=== PATIENT | female | born 1945 | race Caucasian/White ===

== ENCOUNTER 2020-05-04 13:49 | Emergency (ER) | payer MEDICARE, OTHER ==
--- NOTE | 2020-05-04 14:32 | ED Physician Documentation ---
PD HPI ABD PAIN - Stated complaint Stated Complaint: ABD PAIN - Chief complaint Chief Complaint: Abd Pain - History obtained from History obtained from: Patient - Additional information Additional information: 74-year-old woman with history of remote hysterectomy and kidney stones presents with lower abdominal vein pain of 4 days duration. It is a cramping painlow that worsens when she has a bowel movement, but her bowel movements are otherwise unremarkable. No nausea or fevers. No history of abdominal surgeries other than the hysterectomy. She declines pain medication on initial evaluation. Review of Systems Ten Systems: 10 systems reviewed and negative Constitutional: denies: Fever, Chills Cardiac: denies: Chest pain / pressure, Palpitations Respiratory: denies: Dyspnea, Cough PD PAST MEDICAL HISTORY - Past Medical History : Kidney stones Musculoskeletal: Osteoarthritis, Osteoporosis, Osteopenia - Past Surgical History /[employer]: Hysterectomy - Present Medications Home Medications: Ambulatory Orders Medication Instructions Recorded Confirmed Amox/Clav 875/125 [Augmentin] 1 each PO Q12H #20 tablet 05/04/20 Cream Base No.52 [Hrt Cream] 05/04/20 - Allergies Allergies/Adverse Reactions: Allergies Allergy/AdvReac Type Severity Reaction Status Date / Time acetaminophen AdvReac Nausea Verified 05/04/20 13:59 [From [employer] with Codeine] codeine phosphate * AdvReac Nausea Verified 05/04/20 13:59 [From [employer] with Codeine] Opioids - Morphine Analogues AdvReac Nausea Verified 05/04/20 13:59 PD ED PE NORMAL - Vitals Vital signs reviewed: Yes - General General: Alert and oriented X 3, No acute distress - HEENT HEENT: PERRL, EOMI - Neck Neck: Supple, no meningeal sign, No bony TTP - Cardiac Cardiac: RRR, No murmur - Respiratory Respiratory: No respiratory distress, Clear bilaterally - Abdomen Abdomen: Other (Tender in the low abdomen, with hyperactive bowel sounds. No surgical signs. Tenderness does not seem to lateralize to one side or the other.) - Back Back: No CVA TTP, No spinal TTP - Derm Derm: Normal color, Warm and dry - Extremities Extremities: No deformity, No edema, No calf tenderness / cord - Neuro Neuro: Alert and oriented X 3, Normal speech Results - Vitals Vitals: Vital Signs - 24 hr 05/04/20 05/04/20 13:59 15:27 Temperature 37.5 C 37 C Heart Rate 86 88 Respiratory 18 12 Rate Blood Pressure 134/70 H 142/67 H O2 Saturation 100 98 Oxygen O2 Source Room air - Labs Labs: Laboratory Tests 05/04/20 05/04/20 05/04/20 14:26 15:08 15:08 WBC 10.9 H RBC 3.99 L Hgb 12.4 Hct 36.8 L MCV 92.2 MCH 31.1 H MCHC 33.7 RDW 12.7 Plt Count 219 MPV 10.6 Neut # (Auto) 8.3 H Lymph # (Auto) 1.6 [place] # (Auto) 0.9 Eos # (Auto) 0.1 Baso # (Auto) 0.1 Absolute Nucleated RBC 0.00 Nucleated RBC % 0.0 Sodium 135 Potassium 3.3 L Chloride 99 L Carbon Dioxide 24 Anion Gap 12.0 BUN 15 Creatinine 0.7 Estimated GFR (MDRD) 82 L Glucose 102 H Calcium 9.1 Total Bilirubin 0.7 AST 18 ALT 16 Alkaline Phosphatase 84 Total Protein 7.7 Albumin 4.0 Globulin 3.7 Albumin/Globulin Ratio 1.1 Lipase 30 Urine Color YELLOW Urine Clarity CLEAR Urine pH 6.0 Ur Specific [place] 1.010 Urine Protein NEGATIVE Urine Glucose (UA) NEGATIVE Urine Ketones 15 H Urine Occult Blood NEGATIVE Urine Nitrite NEGATIVE Urine Bilirubin NEGATIVE Urine Urobilinogen 0.2 (NORMAL) Ur Leukocyte Esterase NEGATIVE Ur Microscopic Review NOT INDICATED Urine Culture Comments NOT INDICATED PD MEDICAL DECISION MAKING - ED course ED course: 74-year-old woman presents with lower abdominal pain, found to have uncomplicated diverticulitis. Very mild leukocytosis. We discussed recent studies and [place] gastroenterology Association guidelines with regard to antibiotic use for uncomplicated diverticulitis and with shared decision making she would like to still go ahead with antibiotics. Understands the need for dietary restrictions and follow-up colonoscopy. Declines pain medications. Departure - Departure Disposition: 01 Home, Self Care Clinical Impression: Diverticulitis of gastrointestinal tract Condition: Good Record reviewed to determine appropriate education?: Yes Instructions: ED Diverticulitis Prescriptions: Amox/Clav 875/125 [Augmentin] 1 each PO Q12H #20 tablet Comments: As discussed, you should probably talk with your primary care physician about having a colonoscopy after this flare has calm down in a couple of months. We discussed whether or not to do antibiotics today given the new evidence that potentially not all flares of diverticulitis require antibiotic treatment. At your request we are starting some antibiotics. Return if worse. Clear liquids for the next 36 hours and then a low residue diet without much fiber for another couple of days.
[2020-05-04 14:44] LABS: BILIRUBIN,URINE NEGATIVE (NEGATIVE); GLUCOSE, URINE (UA) NEGATIVE (NEGATIVE); KETONES,URINE (UA) 15 mg/dL (NEGATIVE); LEUKOCYTE ESTERASE, URINE NEGATIVE (NEGATIVE); NITRITE,URINE NEGATIVE (NEGATIVE); OCCULT BLOOD,URINE NEGATIVE (NEGATIVE); PROTEIN,URINE NEGATIVE (NEGATIVE); UROBILINOGEN,URINE 0.2 (NORMAL) E.U./dL (NORMAL)
[2020-05-04 14:48] LABS: CLARITY,URINE CLEAR (CLEAR)
[2020-05-04 15:20] LABS: BASOPHILS # (AUTO) 0.1 10^3/uL (0.0-0.1); BASOPHILS % (AUTO) 0.6 %; EOSINOPHILS # (AUTO) 0.1 10^3/uL (0.0-0.7); EOSINOPHILS % (AUTO) 0.8 %; HGB - HEMOGLOBIN 12.4 g/dL (12.0-16.0); LYMPHOCYTES # (AUTO) 1.6 10^3/uL (1.5-3.5); LYMPHOCYTES % (AUTO) 14.3 %; MEAN CORPUSCULAR HEMOGLOBIN 31.1 pg (27.0-31.0); MEAN CORPUSCULAR HGB CONC 33.7 g/dL (32.0-36.0); MEAN CORPUSCULAR VOLUME 92.2 fL (81.0-99.0); MEAN PLATELET VOLUME 10.6 fL (7.9-10.8); MONOCYTES # (AUTO) 0.9 10^3/uL (0.0-1.0); MONOCYTES % (AUTO) 7.8 %; NEUTROPHILS # (AUTO) 8.3 10^3/uL (1.5-6.6); NEUTROPHILS % (AUTO) 76.1 %; PLT - PLATELET COUNT 219 10^3/uL (130-450); RED BLOOD COUNT 3.99 10^6/uL (4.20-5.40); RED CELL DISTRIBUTION WIDTH 12.7 % (12.0-15.0); WHITE BLOOD COUNT 10.9 x10^3/uL (4.8-10.8)
[2020-05-04] MEDS ORDERED: IOVERSOL 320 100 ML VIAL IVP ONE ×2 (15:28→16:08)
[2020-05-04 15:32] LABS: ALBUMIN/GLOBULIN RATIO 1.1 (1.0-2.2); BILIRUBIN,TOTAL 0.7 mg/dL (0.2-1.0); CALCIUM 9.1 mg/dL (8.5-10.3); CREATININE 0.7 mg/dL (0.4-1.0); TOTAL PROTEIN 7.7 g/dL (6.7-8.2)
--- NOTE | 2020-05-04 16:11 | CT Report ---
PROCEDURE: Abdomen/Pelvis W INDICATIONS: Low abdominal pain CONTRAST: IV CONTRAST: Optiray 320 ml: 100 PO CONTRAST: *NO PO CONTRAST TECHNIQUE: After the administration of intravenous contrast, 5 mm thick sections acquired from the diaphragms to the symphysis. 5 mm thick coronal and sagittal reformats were acquired. For radiation dose reducti on, the following was used: automated exposure control, adjustment of mA and/or kV according to shereen ent size. COMPARISON: None. FINDINGS: Image quality: Excellent. ABDOMEN: Lung bases: Lung bases are clear. Heart size is normal. Solid organs: Liver and spleen are normal in size and enhancement. Gallbladder is normal. Biliary system is non dilated. Pancreas enhances normally. No adrenal nodules. Kidneys demonstrate normal size and enhancement, without hydronephrosis. Peritoneum and bowel: Just proximal to the rectosigmoid junction, there is an approximately 6 cm segm ent of distal sigmoid which is abnormally thickened with adjacent fat stranding. Innumerable sigmoid diverticula are present. No adjacent fluid collection or free air. Remaining bowel is within normal l imits. Large volume of formed stool throughout the colon. Nodes and vessels: No retroperitoneal or mesenteric adenopathy by size criteria. Aorta and inferior vena cava are normal in size. Miscellaneous: No ventral hernias. PELVIS: Genitourinary: Bladder wall thickness is normal. Miscellaneous: No inguinal hernias or adenopathy. Bones: No suspicious bony lesions. No vertebral body compression fractures. IMPRESSION: Acute sigmoid diverticulitis without associated abscess or evidence of perforation Reviewed by: Dann Anders MD on 05/04/2020 4:09 PM PST Approved by: Dann Anders MD on 05/04/2020 4:09 PM PST Station ID: [id number]
[2020-05-04] MEDS ORDERED: AMOX/CLAV 875 MG/125 MG TABLET PO STA (16:19)
[2020-05-04 16:34] VITALS: BP 144/78
== END 2020-05-04 16:33 | disposition home or self-care (01) ==
LOC: ED 13:49
DX: K57.32 Diverticulitis of large intestine without perforation or abscess without bleeding (principal); Z90.710 Acquired absence of both cervix and uterus
CPT/HCPCS: 36415; 74177; 80053; 81003; 83690; 85025; 99284; A9270; Q9967; 81001; 87086

== ENCOUNTER 2021-03-01 14:18 | Outpatient (CLI) | payer MEDICARE, OTHER ==
--- NOTE | 2021-03-01 15:46 | DEXA Report ---
PROCEDURE: Dexa Spine and/or Hip INDICATIONS: OSTEOPOROSIS TECHNIQUE: Dual energy x-ray absorptiometry (DXA) was performed on a [employer]. Regions measur ed are the AP Spine, femoral neck, and if needed forearm. COMPARISON: DEXA , 07/10/2014. FINDINGS: Lumbar Spine: Bone Mineral Density 1.214 g/cm/cm,T score 0.3. Left Hip: Bone Mineral Density 0.H19 g/cm/cm,T score -2.2. Left Femoral Neck: Bone Mineral Density 0.733 g/cm/cm, T score -1.5. (T score greater or equal to -1.0: NORMAL) (T score from -1.1 to -2.4: OSTEOPENIA) (T score less than or equal to -2.5 to: OSTEOPOROSIS) Impression: Based on WHO criteria, the patient is osteopenic. Compared to to the last exam, the bone mineral density is similar. Assessment for statistical change is possible due to difference in softwa re and equipment. Patients with diagnosis of osteoporosis or osteopenia should have regular bone mineral density assess ment. For those eligible for Medicare, routine testing is allowed once every 2 years. Testing frequ ency can be increased for patients who have rapidly progressing disease or for those who are receivin g medical therapy to restore bone mass. Reviewed by: Brett Edgar MD on 03/01/2021 3:45 PM PDT Approved by: Brett Edgar MD on 03/01/2021 3:45 PM PDT Station ID: [id number]
== END 2021-03-01 14:19 | disposition home or self-care (01) ==
LOC: DI 14:18
PROVIDERS: ATTEND Internal Medicine
DX: M85.89 Other specified disorders of bone density and structure, multiple sites (principal)

== ENCOUNTER 2021-06-30 16:07 | Outpatient (CLI) | payer MEDICARE, OTHER ==
--- NOTE | 2021-06-30 17:11 | Ultrasound Report ---
PROCEDURE: Carotid Doppler Complete INDICATIONS: AMAUROSIS FUGAX TECHNIQUE: Color and pulse Doppler interrogation was performed of both carotid systems, with image documentation and velocity measurements. COMPARISON: None. FINDINGS: The common carotid arteries are patent and demonstrate normal flow velocities. By velocity criteria, no hemodynamically significant stenosis can be seen within the internal carotid arteries. Normal flory earing waveforms are seen. Atherosclerotic change can be seen, left worse than right. Antegrade flow seen within both vertebral arteries. IMPRESSION: No hemodynamically significant stenosis is seen. Atherosclerotic changes are noted, left worse than right. The estimate of stenosis included in the report of the imaging study was calculated using the NASCET method Reviewed by: Yuan Johnson MD on 06/30/2021 4:10 PM [facility] Approved by: Yuan Johnson MD on 06/30/2021 4:10 PM [facility] Station ID: [id number]
== END 2021-06-30 16:08 | disposition home or self-care (01) ==
LOC: DI 16:07
PROVIDERS: ATTEND Internal Medicine
DX: G45.3 Amaurosis fugax (principal); I65.23 Occlusion and stenosis of bilateral carotid arteries
CPT/HCPCS: 93880

== ENCOUNTER 2021-07-08 14:14 | Outpatient (CLI) | payer MEDICARE, OTHER ==
--- NOTE | 2021-07-09 08:46 | Mammography Report ---
BILATERAL DIGITAL SCREENING MAMMOGRAM 3D/2D: 07/08/2021 CLINICAL: Routine screening. Comparison is made to exams dated: 07/10/2014 mammogram and 05/13/2013 mammogram - [facility]. The tissue of both breasts is heterogeneously dense. This may lower the sensitivity of michael mography. No significant masses, calcifications, or other findings are seen in either breast. There has been no significant interval change. IMPRESSION: NEGATIVE There is no mammographic evidence of malignancy. A 1 year screening mammogram is recommended. This exam was interpreted at Station ID: [id number]. NOTE: For mammograms, a report in lay terms will be sent to the patient. Approximately 15% of breast malignancies will not be visualized mammographically. In the management of a palpable breast mass, a negative mammogram must not discourage biopsy of a clinically suspicious lesion. Electronically Signed By: Poncho Bae M.D. ar/penrad:07/08/2021 15:53:42 ACR BI-RADS Category 1: Negative 3341F PARENCHYMAL PATTERN: (D) - The breast(s) demonstrate(s) heterogeneously dense fibroglandular paula langford. BI-RADS CATEGORY: (1) - 1 RECOMMENDATION: (ANNUAL) - Recommend routine annual screening mammography. [id number] 1 year screening LATERALITY: (B)
== END 2021-07-08 14:15 | disposition home or self-care (01) ==
LOC: DI.S 14:14
PROVIDERS: ATTEND Internal Medicine
DX: Z12.31 Encounter for screening mammogram for malignant neoplasm of breast (principal)

== ENCOUNTER 2021-10-04 11:21 | Outpatient (CLI) | payer MEDICARE, OTHER ==
[2021-10-04 11:42] LABS: CREATININE 0.6 mg/dL (0.4-1.0)
[2021-10-04] MEDS ORDERED: IOVERSOL 320 50 ML VIAL ONE (12:13)
[2021-10-04] MEDS ORDERED: IOPAMIDOL-300 100 ML VIAL ONE (12:14)
[2021-10-04] MEDS ORDERED: IOPAMIDOL-300 100 ML VIAL IVP ONE (13:37)
[2021-10-04] MEDS ORDERED: IOVERSOL 320 50 ML VIAL PO ONE (13:37)
--- NOTE | 2021-10-04 16:31 | CT Report ---
PROCEDURE: CT abdomen and pelvis with contrast INDICATIONS: Abdominal pain CONTRAST: IV CONTRAST: Isovue 300 ml: 100 PO CONTRAST: Optiray 320 ml50 TECHNIQUE: After the administration of contrast, 5 mm thick sections acquired from the diaphragms to the sym physis. 5 mm thick coronal and sagittal reformats were acquired. For radiation dose reduction, the following was used: automated exposure control, adjustment of mA and/or kV according to patient size . COMPARISON: 05/04/2020 FINDINGS: Image quality: Excellent. ABDOMEN: Lung bases: Lung bases are clear. Heart size is normal. Solid organs: Liver and spleen are normal in size and enhancement. Gallbladder unremarkable. Bilia ry system is non dilated. Pancreas enhances normally. No adrenal nodules. Kidneys demonstrate norm al size and enhancement, without hydronephrosis. Peritoneum and bowel: Bowel loops demonstrate normal wall thickness and caliber. No free fluid or a ir. Sigmoid diverticulosis without evidence of diverticulitis Nodes and vessels: No retroperitoneal or mesenteric adenopathy by size criteria. Aorta and inferior vena cava are normal in size. Atherosclerotic calcification of the abdominal aorta without evidence of aneurysm. Miscellaneous: No ventral hernias. PELVIS: Genitourinary: Bladder wall thickness is normal. Miscellaneous: No inguinal hernias or adenopathy. Bones: No suspicious bony lesions. L4 compression fracture, unchanged. IMPRESSION: 1. No acute CT findings in the abdomen and pelvis. 2. Sigmoid diverticulosis without evidence of acute diverticulitis. No obstruction or free air. 3. Stable L4 compression fracture Reviewed by: Marshal King MD on 10/04/2021 3:30 PM [facility] Approved by: Marshal King MD on 10/04/2021 3:30 PM [facility] Station ID: [id number]
== END 2021-10-04 11:22 | disposition home or self-care (01) ==
LOC: LAB 11:21 → DI 11:22
PROVIDERS: ATTEND Internal Medicine
DX: R10.9 Unspecified abdominal pain (principal); Z79.899 Other long term (current) drug therapy; K57.30 Diverticulosis of large intestine without perforation or abscess without bleeding; M48.56XD Collapsed vertebra, not elsewhere classified, lumbar region, subsequent encounter for fracture with routine healing
CPT/HCPCS: 36415; 74177; 82565; Q9967

== ENCOUNTER 2023-02-19 15:19 | Outpatient (CLI) | payer MEDICARE, OTHER ==
--- NOTE | 2023-02-19 17:39 | DEXA Report ---
PROCEDURE: Dexa Spine and/or Hip INDICATIONS: OSTEOPOROSIS TECHNIQUE: Dual energy x-ray absorptiometry (DEXA) was performed in the regions detailed below. COMPARISON: None. FINDINGS: Lumbar Spine: Bone Mineral Density 1.1-3 g/cm/cm,T score -0.5. Previously 0.3 Left Femoral Neck: Bone Mineral Density 0.677 g/cm/cm, T score -2.6. Previously -2.2 Left Hip: Bone Mineral Density 0.759 g/cm/cm,T score -2.0. -1.5 (T score greater or equal to -1.0: NORMAL) (T score from -1.1 to -2.4: OSTEOPENIA) (T score less than or equal to -2.5 to: OSTEOPOROSIS) IMPRESSION: Worsening osteoporosis Patients with diagnosis of osteoporosis or osteopenia should have regular bone mineral density assess ment. For those eligible for Medicare, routine testing is allowed once every 2 years. Testing frequ ency can be increased for patients who have rapidly progressing disease or for those who are receivin g medical therapy to restore bone mass. Reviewed by: Marshal King MD on 02/19/2023 4:38 PM [facility] Approved by: Marshal King MD on 02/19/2023 4:38 PM [facility] Station ID: [id number]
== END 2023-02-19 15:20 | disposition home or self-care (01) ==
LOC: DI 15:19
PROVIDERS: ATTEND Internal Medicine
DX: M81.0 Age-related osteoporosis without current pathological fracture (principal)